=== PATIENT | female | born 1995 | race Hispanic/Latino ===

== ENCOUNTER 2018-10-14 10:44 | Emergency (ER) | payer OTHER, SELFPAY ==
[2018-10-14 12:06] LABS: Bilirubin Negative (Negative); Blood, Urine Large (Negative); Clarity CLEAR (Clear); Glucose, Urine (Dipstick) Negative (Negative); Leukocyte Negative (Negative); Nitrite Negative (Negative); Protein, Urine (Dipstick) Negative (Neg-Trace); Urobilinogen 0.2 mg/dL (0.2-1.0)
[2018-10-14 12:08] LABS: Bacteria/HPF None Seen HPF (None Seen); Hyaline Casts/LPF 0-3 HYALINE CAST LPF (0-3 Hyaline); Pathc Cast-AUWi Flag 0.67 (0-2.49); Squamous Epithelial 0-3 HPF (0-3); WBC/HPF 0-3 HPF (0-3)
[2018-10-14 12:10] LABS: Pregnancy Test - Urine (BHCG) Negative (Negative); Pregu Control Background? CLEAR/WHITE (CLR/WHITE); Pregu Control Bar Appear? YES (CONTROL BAR); Specific Gravity 1.019 (1.002-1.036)
[2018-10-14] MEDS ORDERED: Sterile Water 10 ML ONE (12:24)
[2018-10-14] MEDS ORDERED: cefTRIAXone\\ROCEPHIN 250 MG VIAL ONE (12:24)
[2018-10-14] MEDS ORDERED: Ondansetron ODT 4 MG TAB ONE (12:24)
[2018-10-14] MEDS ORDERED: Azithromycin 250 MG TAB ONE (12:24)
[2018-10-18 21:28] LABS: Chlam.trachomatis by PCR,Urine DETECTED (NotDetected)
== END 2018-10-14 12:58 | disposition home or self-care (01) ==
LOC: ERS 10:44
DX: N76.0 Acute vaginitis (principal)
CPT/HCPCS: 81003; 81015; 81025; 87491; 87591; 96372; A4216; J0696; Q0162